=== PATIENT | female | born 1950 | race Caucasian/White ===

== ENCOUNTER 2018-12-27 07:43 | Day surgery (SDC) | payer MEDICARE ==
--- OUTSIDE RECORDS SUMMARY | 2018-12-27 07:49 | XMS REPORT | Clinical Summary ---
:1950 Author Organization [facility] Address [address] [place] [address] Care Team Providers Name Role Phone José De Leon MD Primary Care Provider Allergies Active Allergy Reactions Severity Noted Date Comments Promethazine-Dm Nausea Only 12/31/2017 Medications Medication Sig Dispensed Refills Start Date End Date Status citalopram (CELEXA) 10 Take 10 mg by 0 Active MG tablet mouth daily. cetirizine (ZYRTEC) 10 Take 10 mg by 0 Active MG tablet mouth daily. glucosamine sulfate Take by mouth. 0 Active (GLUCOSAMINE) 500 mg Tab levETIRAcetam (KEPPRA) Take 1 tablet 60 tablet 11 01/01/2018 01/01/2019 Active 500 MG tablet (500 mg total) by mouth 2 (two) times daily. Active Problems Problem Noted Date Syncope, unspecified syncope type 12/31/2017 Encounters Date Type Specialty Care Team Description 12/31/2017 - Emergency Cardiology Terry Spear Syncope, unspecified syncope type (Primary Dx); 01/01/2018 MD Demetrio Hypertension, uncontrolled; Irineo Baker MD Seizure ([facility]) Jo-Ann Pierre MD after 12/26/2017 Family History Medical History Relation Name Comments Cancer Maternal Aunt Cancer Sister Relation Name Status Comments Maternal Aunt Sister Social History Tobacco Use Types Packs/Day Years Used Date Never Smoker Smokeless Tobacco: Never Used Alcohol Use Drinks/Week oz/Week Comments No Sex Assigned at Date Recorded Not on file Job Start Date Occupation Industry Not on file Not on file Not on file Travel History Travel Start Travel End No recent travel history available. Last Filed Vital Signs Vital Sign Reading Time Taken Blood Pressure 134/71 01/01/2018 3:53 PM CDT Pulse 71 01/01/2018 3:53 PM CDT Temperature 36.8 C (98.3 F) 01/01/2018 3:53 PM CDT Respiratory Rate 18 01/01/2018 3:53 PM CDT Oxygen Saturation 98% 01/01/2018 3:53 PM CDT Inhaled Oxygen Concentration - - Weight 75.5 kg (166 lb 8 oz) 01/01/2018 9:05 AM CDT Height 167.6 cm (5' 6") 12/31/2017 10:00 PM CDT Body Mass Index 26.87 01/01/2018 9:05 AM CDT Plan of Treatment Not on file Procedures Procedure Name Priority Date/Time Associated Comments Diagnosis RHYTHM STRIP - SCAN 01/04/2018 1:20 PM CDT EEG AWAKE AND DROWSY Routine 01/01/2018 8:35 Results for this AM CDT procedure are in the results section. PERIPHERAL VASCULAR 01/01/2018 7:20 REPORT - SCAN AM CDT URINALYSIS W/ Routine 01/01/2018 4:15 Results for this MICROSCOPIC AM CDT procedure are in the results section. URINE CULTURE Routine 01/01/2018 4:15 Results for this AM CDT procedure are in the results section. CBC W/PLT COUNT & Routine 01/01/2018 4:12 Results for this AUTO DIFFERENTIAL AM CDT procedure are in the results section. D-DIMER Routine 01/01/2018 4:12 Results for this AM CDT procedure are in the results section. TROPONIN I Routine 01/01/2018 4:12 Results for this AM CDT procedure are in the results section. PROTEIN AP Routine 01/01/2018 4:12 Results for this ELECTROPHORESIS, AM CDT procedure are in SERUM the results section. HEMOGLOBIN A1C AP Routine 01/01/2018 4:12 Results for this AM CDT procedure are in the results section. RPR Routine 01/01/2018 4:12 Results for this AM CDT procedure are in the results section. VITAMIN B12 AND Routine 01/01/2018 4:12 Results for this FOLATE AM CDT procedure are in the results section. TSH/FREE T4 IF Routine 01/01/2018 4:12 Results for this INDICATED AM CDT procedure are in the results section. CBC W/PLT COUNT & Routine 01/01/2018 4:12 Results for this AUTO DIFFERENTIAL AM CDT procedure are in the results section. BASIC METABOLIC PANEL Routine 01/01/2018 4:12 Results for this (7) AM CDT procedure are in the results section. MR BRAIN WITHOUT & STAT 01/01/2018 3:19 Results for this WITH IV CONTRAST AM CDT procedure are in the results section. CAROTID DOPPLER Routine 12/31/2017 8:26 Results for this BILATERAL PM CDT procedure are in the results section. CT BRAIN WITHOUT IV STAT 12/31/2017 3:12 Results for this CONTRAST PM CDT procedure are in the results section. XR CHEST 1 VIEW STAT 12/31/2017 2:39 Results for this PORTABLE/BEDSIDE PM CDT procedure are in the results section. CBC W/PLT COUNT & STAT 12/31/2017 2:18 Results for this AUTO DIFFERENTIAL PM CDT procedure are in the results section. CBC W/PLT COUNT & STAT 12/31/2017 2:18 Results for this AUTO DIFFERENTIAL PM CDT procedure are in the results section. TROPONIN I STAT 12/31/2017 2:18 Results for this PM CDT procedure are in the results section. B-TYPE NATRIURETIC STAT 12/31/2017 2:18 Results for this FACTOR (BNP) PM CDT procedure are in the results section. MAGNESIUM STAT 12/31/2017 2:18 Results for this PM CDT procedure are in the results section. BASIC METABOLIC PANEL STAT 12/31/2017 2:18 Results for this (7) PM CDT procedure are in the results section. after 12/26/2017 Results RHYTHM STRIP - SCAN (01/04/2018 1:20 PM CDT) Narrative Performed At EEG AWAKE AND DROWSY (01/01/2018 8:35 AM CDT) Specimen Narrative Performed At Date(s) of EE01/01/2018 RIS DATE OF REPORT: 01/01/2018 ACC: [id number] EEG Number: [id number] Test Location: Outpatient EEG Lab Start time: 08:13 Stop time: 08:35 ICD-10: R56.9 CPT Code: 66720 HISTORY: 67 y/o woman with hx of depression/anxiety, seizures in childhood who presents with an episode of syncope MEDICATIONS THAT COULD AFFECT EEG: citalopram, ondansetron, tramadol TECHNICAL SUMMARY: This is a digital video-EEG recorded with 32 input channels reviewed with bipolar and referential montages using the modified combinatorial system nomenclature. DESCRIPTION OF RECORD: During the maximally alert state a 9 Hz posterior dominant rhythm was seen that was symmetric, reactive to eye opening and well regulated. More anteriorly, low voltage frontocentral beta predominated. Drowsiness was characterized by alpha attenuation and increased frontocentral theta.Stage 2 sleep was not reached. SIGNIFICANT VIDEO EVENTS: None SIGNIFICANT ELECTROCARDIOGRAM EVENTS: None HV: Hyperventilation was not performed. PHOTIC STIMULATION: Photic stimulation was done from 3-30 Hz; no photic driving was seen; photoparoxysmal responses were absent. IMPRESSION: Normal Awake and Drowsy EEG CLINICAL CORRELATION: An EEG without epileptiform discharges does not exclude the possibility of epilepsy.If the clinical suspicion of epilepsy remains, consider additional EEG recordings. Rola Queen MD Neurophysiology Fellow Norbert Lim MD, MS Clinical Neurophysiology/Epilepsy Attending [facility] Procedure Note Interface, External Ris In - 01/01/2018 11:09 AM CDT Date(s) of EE01/01/2018 DATE OF REPORT: 01/01/2018 ACC: [id number] EEG Number: [id number] Test Location: Outpatient EEG Lab Start time: 08:13 Stop time: 08:35 ICD-10: R56.9 CPT Code: 74438 HISTORY: 67 y/o woman with hx of depression/anxiety, seizures in childhood who presents with an episode of syncope MEDICATIONS THAT COULD AFFECT EEG: citalopram, ondansetron, tramadol TECHNICAL SUMMARY: This is a digital video-EEG recorded with 32 input channels reviewed with bipolar and referential montages using the modified combinatorial system nomenclature. DESCRIPTION OF RECORD: During the maximally alert state a 9 Hz posterior dominant rhythm was seen that was symmetric, reactive to eye opening and well regulated. More anteriorly, low voltage frontocentral beta predominated. Drowsiness was characterized by alpha attenuation and increased frontocentral theta. Stage 2 sleep was not reached. SIGNIFICANT VIDEO EVENTS: None SIGNIFICANT ELECTROCARDIOGRAM EVENTS: None HV: Hyperventilation was not performed. PHOTIC STIMULATION: Photic stimulation was done from 3-30 Hz; no photic driving was seen; photoparoxysmal responses were absent. IMPRESSION: Normal Awake and Drowsy EEG CLINICAL CORRELATION: An EEG without epileptiform discharges does not exclude the possibility of epilepsy. If the clinical suspicion of epilepsy remains, consider additional EEG recordings. Rola Queen MD Neurophysiology Fellow Norbert Lim MD, MS Clinical Neurophysiology/Epilepsy Attending [facility] Performing Organization Address City/[facility]/Zipcode Phone Number GE RIS PERIPHERAL VASCULAR REPORT - SCAN (01/01/2018 7:20 AM CDT) Narrative Performed At Urinalysis w/ Microscopic (01/01/2018 4:15 AM CDT) Color, UA Light Yellow [facility] Clarity, UA Clear [facility] Specific [place], UA 1.007 1.001 - 1.035 [facility] pH, UA 6.5 5.0 - 8.0 [facility] Protein, UA Negative Negative [facility] Glucose, UA Negative Negative [facility] Ketones, UA Negative Negative [facility] Bilirubin, UA Negative Negative [facility] Blood, UA Negative Negative [facility] Nitrite, UA Negative Negative [facility] Leukocytes, UA Small (A) Negative [facility] Urobilinogen, UA 0.2 0.2 - 1.0 mg/dL [facility] RBC, UA 0 /HPF [facility] WBC, UA 5 /HPF [facility] Squam Epithel, UA 2 /HPF [facility] Specimen Source Urine, Voided [facility] Specimen Urine Performing Organization Address City/[facility]/Zipcode Phone Number [facility] [address] [place] [address] CENTER Urine culture (01/01/2018 4:15 AM CDT) Result BETA-HEMOLYTIC STREPTOCOCCUS, [facility] NON-GROUP A, NON-GROUP B (A) [facility] Result 10-19,000 col/mL Enterococcus [facility] species (A) [facility] [place] Specimen Urine Narrative Performed At 50-59,000 col/mL skin mannie [facility] <10,000 col/mL GRAM NEGATIVE NENO Organism Antibiotic Method Susceptibility Enterococcus species Ampicillin <=2: Susceptible Enterococcus species Linezolid 2: Susceptible Enterococcus species Nitrofurantoin <=16: Susceptible Enterococcus species Tetracycline <=1: Susceptible Enterococcus species Vancomycin 1: Susceptible Performing Organization Address [facility] Phone Number [address] [address] [phone] [place] Vitamin B12 and Folate (01/01/2018 4:12 AM CDT) Vitamin B12 310 213 - 816 pg/mL [facility] Folate 11.2 >=7.0 ng/mL [facility] Specimen Blood Performing Organization Address [facility] Phone Number [address] [phone] [place] TSH/Free T4 If Indicated (01/01/2018 4:12 AM CDT) TSH 1.05 0.35 - 4.94 uIU/mL [facility] Specimen Blood Performing Organization Address [facility] Phone Number [address] [address] [phone] [place] CBC with platelet count + automated diff (01/01/2018 4:12 AM CDT)Only the most recent of2 resultswithin the time period is included. WBC 8.7 3.5 - 10.5 K/L [facility] RBC 3.98 3.93 - 5.22 M/L [facility] Hemoglobin 11.7 11.2 - 15.7 GM/DL [facility] Hematocrit 36.3 34.1 - 44.9 % [facility] MCV 91.2 79.4 - 94.8 fL [facility] MCH 29.4 25.6 - 32.2 pg [facility] MCHC 32.2 32.2 - 35.5 GM/DL [facility] RDW 13.5 11.7 - 14.4 % [facility] Platelets 251 150 - 450 K/CU MM [facility] MPV 8.7 (L) 9.4 - 12.3 fL [facility] nRBC 0 0 - 0 /100 WBC [facility] % Neutros 75 % [facility] % Lymphs 14 % [facility] % Monos 8 % [facility] % Eos 2 % [facility] % Baso 1 % [facility] # Neutros 6.57 (H) 1.56 - 6.13 K/L [facility] # Lymphs 1.25 1.18 - 3.74 K/L [facility] # Monos 0.66 (H) 0.24 - 0.36 K/L [facility] # Eos 0.15 0.04 - 0.36 K/L [facility] # Baso 0.06 0.01 - 0.08 K/L [facility] Immature Granulocytes-Relative 1 0 - 1 % [facility] Specimen Blood Performing Organization Address City/State/Zipcode Phone Number [facility] [address] [place] [address] CENTER Troponin I (01/01/2018 4:12 AM CDT)Only the most recent of2 resultswithin the time period is included. Troponin I <0.01 0.00 - 0.03 ng/mL [facility] Specimen Blood Narrative Performed At [facility] Troponin I (TnI) levels must be interpreted in the context of the presenting symptoms and the clinical findings. Elevated TnI levels indicate myocardial damage, but are not specific for ischemic heart disease. Elevated TnI levels are seen in patients with other cardiac conditions (including myocarditis and congestive heart failure), and slight TnI elevations occur in patients with other conditions, including sepsis, renal failure, acidosis, acute neurological disease, and persistent tachyarrhythmia. Performing Organization Address City/[facility] Cent[facility] Phone Number [address] [address] [phone] [place] RPR (01/01/2018 4:12 AM CDT) RPR Nonreactive Nonreactive [facility] Specimen Blood Performing Organization Address [facility] Phone Number [address] [phone] [place] D-dimer (01/01/2018 4:12 AM CDT) D-Dimer, Quant <0.27 <0.50 MG/L FEU [facility] Specimen Blood Narrative Performed At [facility] Intended Use: The D-Dimer Assay can be used to aid in the diagnosis of Deep Vein Thrombosis (DVT) and Pulmonary Embolism Disease (PED). In patients with low pre-test probability, various studies concerning STA Liatest D-dimer test have reported that with a cutoff value of 0.50 MG/L FEU, the Negative Predictive Value (NPV) regarding the exclusion of thrombosis is within 95-100% range. Performing Organization Address [facility] Phone Number [address] [phone] [place] Protein electrophoresis, serum (01/01/2018 4:12 AM CDT) Albumin Fraction 3.1 (L) 3.5 - 5.5 g/dL [facility] Alpha 1 Fraction 0.2 0.2 - 0.4 g/dL [facility] Alpha 2 Fraction 0.7 0.5 - 0.9 g/dL [facility] Beta Fraction 1.0 0.6 - 1.1 g/dL [facility] Gamma Globulin Fraction 0.7 0.7 - 1.7 g/dL [facility] Interpretation All fractions present [facility] in expected [facility] distribution. No monoclonal bands detected. Pathologist: Amber Hawkins MD [facility] (electronic signature) [facility] Protein, Total 5.7 (L) 6.0 - 8.3 gm/dL [facility] Specimen Blood Performing Organization Address City/State/Zipcode Phone Number [facility] [address] [place] [address] CENTER Hemoglobin A1c (01/01/2018 4:12 AM CDT) Hemoglobin A1C 5.7 4.3 - 6.1 % [facility] Specimen Blood Performing Organization Address City/State/Zipcode Phone Number [facility] [address] [place], [place] [phone] Basic metabolic panel (01/01/2018 4:12 AM CDT)Only the most recent of2 resultswithin the time period is included. Sodium 138 136 - 145 meq/L [facility] Potassium 3.8 3.5 - 5.1 meq/L [facility] Chloride 107 98 - 107 meq/L [facility] CO2 23 22 - 29 meq/L [facility] BUN 8 7 - 21 mg/dL [facility] Creatinine 0.74 0.57 - 1.25 mg/dL [facility] Glucose 137 (H) 70 - 105 mg/dL [facility] Calcium 8.5 8.4 - 10.2 mg/dL [facility] EGFR Comment: INSUFFICIENT CLINICAL mL/min/1.73 sq m [facility] DATA TO CALCULATE ESTIMATED [facility] GFR. Specimen Blood Performing Organization Address City/State/Zipcode Phone Number [facility] [address] [place] [address] [phone] CENTER MR brain without & with IV contrast (01/01/2018 3:19 AM CDT) Specimen Narrative Performed At FINAL REPORT elicit MR, BRAIN, WITH \\T\\ WITHOUT CONTRAST INDICATION: Seizures new or progressive TECHNIQUE: Multiplanar, multisequence MR imaging of the brain was obtained before and after uneventful administration of gadolinium contrast. COMPARISON: Correlation to noncontrast brain CT December 31, 2017 FINDINGS: Mild cerebral atrophy is present. There are rare deep white matter microvascular changes. Faint increased T2 signal noted in the mesial temporal lobes, which may be artifactual. No parenchymal hemorrhage is present. There is no infarct, space-occupying lesion or abnormal postcontrast enhancement. No intracranial hemorrhage or extra-axial collection is present. The ventricular system is normal in size and configuration. The cortical sulci are within normal limits. The larger intracranial vascular flow voids are preserved. No abnormality of the skull base or calvarium is present. The visualized paranasal sinuses, mastoid air cells, and orbits are within normal limits. IMPRESSION: Faint signal abnormality mesial temporal lobes bilaterally. Appearance may be artifactual or due to infiltrate. Correlation with EEG recommended. No space-occupying lesion. Gross symmetry of the [place] formations. Signed: JR Perez Robert MD Report Verified Date/Time:01/01/2018 04:12:21 Reading Location: [facility] C013Y CT Body Reading Room Procedure Note Interface, External Ris In - 01/01/2018 4:14 AM CDT FINAL REPORT MR, BRAIN, WITH \\T\\ WITHOUT CONTRAST INDICATION: Seizures new or progressive TECHNIQUE: Multiplanar, multisequence MR imaging of the brain was obtained before and after uneventful administration of gadolinium contrast. COMPARISON: Correlation to noncontrast brain CT December 31, 2017 FINDINGS: Mild cerebral atrophy is present. There are rare deep white matter microvascular changes. Faint increased T2 signal noted in the mesial temporal lobes, which may be artifactual. No parenchymal hemorrhage is present. There is no infarct, space-occupying lesion or abnormal postcontrast enhancement. No intracranial hemorrhage or extra-axial collection is present. The ventricular system is normal in size and configuration. The cortical sulci are within normal limits. The larger intracranial vascular flow voids are preserved. No abnormality of the skull base or calvarium is present. The visualized paranasal sinuses, mastoid air cells, and orbits are within normal limits. IMPRESSION: Faint signal abnormality mesial temporal lobes bilaterally. Appearance may be artifactual or due to infiltrate. Correlation with EEG recommended. No space-occupying lesion. Gross symmetry of the [place] formations. Signed: JR Ana, Ambrose GOMEZ Report Verified Date/Time: 01/01/2018 04:12:21 Reading Location: [facility] C013Y CT Body Reading Room Performing Organization Address City/State/Zipcode Phone Number [employer] Carotid doppler bilateral (12/31/2017 8:26 PM CDT) Ejection Fraction [facility] Specimen Impressions Performed At Right Impression [facility] 1. There is <50% diameter reduction (approximately 12% by 2-D measurement) in the internal carotid artery with a peak velocity of 75/24 cm/sec and heterogeneous plaque. 2. The common and external carotid arteries are within normal limits. 3. The vertebral artery flow is antegrade and normal. Left Impression 1. The internal, common and external carotid arteries are within normal limits. 2. The vertebral artery flow is antegrade and normal. Conclusions Summary Carotid duplex scanning and color flow imaging were performed bilaterally. The arteries were adequately visualized. The right internal carotid artery had <50% hemodynamically insignificant stenosis (approximately 12% by 2-D measurement) with heterogeneous plaque. The left internal carotid artery was normal with no plaque visualized. The vertebral artery flow was antegrade and normal bilaterally. Signature Velocities are measured in cm/s ; Diameters are measured in cm Carotid Right Measurements +---------+----+----+-----+ +--------- + + !Location !PSV !EDV !Angle!%Stenosis 2D !%Stenosis Doppler !Tortuosity ! +---------+----+----+-----+ +--------- + + !Prox CCA !116 !32.2!60 ! !! ! +---------+----+----+-----+ +--------- + + !Dist CCA !77!27.5!60 ! !! ! +---------+----+----+-----+ +--------- + + !Prox ICA !75.6!24!60 !12%!<50% ! ! +---------+----+----+-----+ +--------- + + !Dist ICA !95.6!42.8!60 ! !! ! +---------+----+----+-----+ +--------- + + !Prox ECA !70.9!15.2!60 ! !! ! +---------+----+----+-----+ +--------- + + !Vertebral!37.5!13.5!60 ! !! ! +---------+----+----+-----+ +--------- + + - There is antegrade vertebral flow noted on the right side. - Additional Measurements:ICAPSV/CCAPSV 1.24.ICAEDV/CCAEDV 1.33. Carotid Left Measurements +---------+----+----+-----+ +--------- + + !Location !PSV !EDV !Angle!%Stenosis 2D !%Stenosis Doppler !Tortuosity ! +---------+----+----+-----+ +--------- + + !Prox CCA !134 !34.4!60 ! !! ! +---------+----+----+-----+ +--------- + + !Dist CCA !88.5!25.2!60 ! !! ! +---------+----+----+-----+ +--------- + + !Prox ICA !94.4!33.4!60 ! !Normal! ! +---------+----+----+-----+ +--------- + + !Dist ICA !61.5!26.2!0! !!Mild ! +---------+----+----+-----+ +--------- + + !Prox ECA !69.2!16.4!60 ! !! ! +---------+----+----+-----+ +--------- + + !Vertebral!42.8!14.1!60 ! !! ! +---------+----+----+-----+ +--------- + + - There is antegrade vertebral flow noted on the left side. - Additional Measurements:ICAPSV/CCAPSV 1.07.ICAEDV/CCAEDV 0.97. Narrative Performed At LAB - Carotid Duplex Study [facility] Demographics Patient Name LAYLA MCCOY Date of Study12/31/2017 [id number] Visit Number [id number] Gender Female Accession Number [id number] Date of Birth1950 [facility],Room [id number] PhysicianSOL BarnesInterpreting Shelly Puente RVT Physician, ASHLEY Procedure Type of Study: Cerebral: Carotid, CAROTID DOPPLER, BILATERAL. Indications for Study:Syncope . Patient Status:Routine. Study Location:Portable. Technical Quality:Adequate visualization. Risk Factors History of Disease + -----+ +--------+ !Diagnosis !Date!Comments! + -----+ +--------+ !History/Risk Factors: !12/31/2017!seizures! + -----+ +--------+ Procedure Note Interface, External Ris In - 01/01/2018 6:20 AM CDT [facility] LAB - Carotid Duplex Study Demographics Patient Name LAYLA MCCOY Date of Study 12/31/2017 Age 67 Visit Number [id number] Gender Female Accession Number [id number] Date of 1950 Referring Irineo Baker, Room Number 1442 Physician RES Special Agent [employer] Service Xochitl Barnes Interpreting Shelly Puente [facility] Physician , ASHLEY Procedure Type of Study: Cerebral: Carotid, CAROTID DOPPLER, BILATERAL. Indications for Study:Syncope . Patient Status:Routine. Study Location:Portable. Technical Quality:Adequate visualization. Risk Factors History of Disease + + +--------+ !Diagnosis !Date !Comments! + + +--------+ !History/Risk Factors: !12/31/2017!seizures! + + +--------+ Impressions Right Impression 1. There is <50% diameter reduction (approximately 12% by 2-D measurement) in the internal carotid artery with a peak velocity of 75/24 cm/sec and heterogeneous plaque. 2. The common and external carotid arteries are within normal limits. 3. The vertebral artery flow is antegrade and normal. Left Impression 1. The internal, common and external carotid arteries are within normal limits. 2. The vertebral artery flow is antegrade and normal. Conclusions Summary Carotid duplex scanning and color flow imaging were performed bilaterally. The arteries were adequately visualized. The right internal carotid artery had <50% hemodynamically insignificant stenosis (approximately 12% by 2-D measurement) with heterogeneous plaque. The left internal carotid artery was normal with no plaque visualized. The vertebral artery flow was antegrade and normal bilaterally. Signature Velocities are measured in cm/s ; Diameters are measured in cm Carotid Right Measurements +---------+----+----+-----+ + + + !Location !PSV !EDV !Angle!%Stenosis 2D !%Stenosis Doppler !Tortuosity ! +---------+----+----+-----+ + + + !Prox CCA !116 !32.2!60 ! ! ! ! +---------+----+----+-----+ + + + !Dist CCA !77 !27.5!60 ! ! ! ! +---------+----+----+-----+ + + + !Prox ICA !75.6!24 !60 !12% !<50% ! ! +---------+----+----+-----+ + + + !Dist ICA !95.6!42.8!60 ! ! ! ! +---------+----+----+-----+ + + + !Prox ECA !70.9!15.2!60 ! ! ! ! +---------+----+----+-----+ + + + !Vertebral!37.5!13.5!60 ! ! ! ! +---------+----+----+-----+ + + + - There is antegrade vertebral flow noted on the right side. - Additional Measurements:ICAPSV/CCAPSV 1.24.ICAEDV/CCAEDV 1.33. Carotid Left Measurements +---------+----+----+-----+ + + + !Location !PSV !EDV !Angle!%Stenosis 2D !%Stenosis Doppler !Tortuosity ! +---------+----+----+-----+ + + + !Prox CCA !134 !34.4!60 ! ! ! ! +---------+----+----+-----+ + + + !Dist CCA !88.5!25.2!60 ! ! ! ! +---------+----+----+-----+ + + + !Prox ICA !94.4!33.4!60 ! !Normal ! ! +---------+----+----+-----+ + + + !Dist ICA !61.5!26.2!0 ! ! !Mild ! +---------+----+----+-----+ + + + !Prox ECA !69.2!16.4!60 ! ! ! ! +---------+----+----+-----+ + + + !Vertebral!42.8!14.1!60 ! ! ! ! +---------+----+----+-----+ + + + - There is antegrade vertebral flow noted on the left side. - Additional Measurements:ICAPSV/CCAPSV 1.07.ICAEDV/CCAEDV 0.97. Performing Organization Address City/State/Zipcode Phone Number [facility] without IV contrast (12/31/2017 3:12 PM CDT) Specimen Narrative Performed At FINAL REPORT [employer] CT Head without contrast CLINICAL HISTORY: Syncope/fainting headache TECHNIQUE: Contiguous axial images through the head without contrast. This exam was performed according to the departmental dose optimization program which includes automated exposure control, adjustment of the mA and/or kV according to the patient size, and/or use of an iterative reconstruction technique. COMPARISON: None FINDINGS: There is no CT evidence of acute infarct or intracranial hemorrhage. There is periventricular and subcortical white matter hypodensity which is nonspecific but compatible with chronic microvascular ischemic change. There are atherosclerotic calcifications of the intracranial circulation. There is generalized parenchymal volume loss without hydrocephalus, midline shift, or apparent mass effect. There are no extra-axial fluid collections. The skull is intact. The visualized paranasal sinuses are well-aerated. IMPRESSION: No CT evidence of acute infarct, hemorrhage, or hydrocephalus. Signed: Tyesha Workman MD Report Verified Date/Time:12/31/2017 15:17:03 Reading Location: [address] Consult Reading Room Procedure Note Interface, External Ris In - 12/31/2017 3:19 PM CDT FINAL REPORT CT Head without contrast CLINICAL HISTORY: Syncope/fainting headache TECHNIQUE: Contiguous axial images through the head without contrast. This exam was performed according to the departmental dose optimization program which includes automated exposure control, adjustment of the mA and/or kV according to the patient size, and/or use of an iterative reconstruction technique. COMPARISON: None FINDINGS: There is no CT evidence of acute infarct or intracranial hemorrhage. There is periventricular and subcortical white matter hypodensity which is nonspecific but compatible with chronic microvascular ischemic change. There are atherosclerotic calcifications of the intracranial circulation. There is generalized parenchymal volume loss without hydrocephalus, midline shift, or apparent mass effect. There are no extra-axial fluid collections. The skull is intact. The visualized paranasal sinuses are well-aerated. IMPRESSION: No CT evidence of acute infarct, hemorrhage, or hydrocephalus. Signed: Tyesha Workman MD Report Verified Date/Time: 12/31/2017 15:17:03 Reading Location: [facility] C013 Consult Reading Room Performing Organization Address City/State/Zipcode Phone Number [employer] XR chest 1 view portable/bedside (12/31/2017 2:39 PM CDT) Specimen Narrative Performed At FINAL REPORT [employer] EXAM: Frontal chest radiograph HISTORY PROVIDED: Chest pain COMPARISON: None available IMPRESSION: No focal consolidation, pneumothorax, or significant pleural fluid is identified. The cardiomediastinal silhouette is within normal limits. No acute osseous abnormality. Signed: Shiela Starkey MD Report Verified Date/Time:12/31/2017 15:26:03 Reading Location: [facility] Reading Room Procedure Note Interface, External Ris In - 12/31/2017 3:28 PM CDT FINAL REPORT EXAM: Frontal chest radiograph HISTORY PROVIDED: Chest pain COMPARISON: None available IMPRESSION: No focal consolidation, pneumothorax, or significant pleural fluid is identified. The cardiomediastinal silhouette is within normal limits. No acute osseous abnormality. Signed: Shiela Starkey MD Report Verified Date/Time: 12/31/2017 15:26:03 Reading Location: [facility] Reading Room Performing Organization Address City/[facility] Phone Number RIS B-type Natriuretic Factor (BNP) (12/31/2017 2:18 PM CDT) BNP 17 0 - 100 pg/mL [facility] Specimen Blood Performing Organization Address [facility] Cent[facility] Phone Number [address] [address] [phone] CENTER Magnesium (12/31/2017 2:18 PM CDT) Magnesium 2.2 1.6 - 2.6 mg/dL [facility] Specimen Blood Performing Organization Address [facility] Cent[facility] Phone Number [address] [address] CENTER after 12/26/2017 Insurance Payer Benefit Plan / Group Subscriber ID Type Phone Address [facility] - MEDICARE AARP/MEDICARE COMPLETE xxxxxxxxx MGD CARE EK (Home) [place] [address] Advance Directives For more information, please contact:[address] [phone] Code Status Date Activated Date Inactivated Comments Full Code 12/31/2017 5:46 PM 01/01/2018 6:09 PM This code status was determined by: Patient
--- OUTSIDE RECORDS SUMMARY | 2018-12-27 07:50 | XMS REPORT | Continuity of Care Document ---
:1950 Author Organization Interface Problems Problem Status Onset Classification Date Comments Source Date Reported LEFT FOOT Active 10/31/19 [facility] [place] 17 [place] SURGERY 10/30/16 LEFT ANKLE Active 10/31/19 [facility] [place] Fracture of 10/16/19 Problem 11/01/2016 3fell off ladder Surgical calcaneus<mallory 17 Specialty p>2, 3</sup> [facility] [place] Heel pain 10/16/19 Problem 11/01/2016 Surgical 17 Specialty [facility] [place] Convulsion<s 08/17/18 Problem 11/01/2016 1pt states Surgical up>1</sup> 55 convulsion/seizu Specialty re activity with Hospital of fever. resolved [place] after tonsillectomy in 1954. was on Phenobarbital x 1 year after surgery. No further problems or seizure activity. Medications Medication Details Route Status Patient Ordering Order Source Instructions Provider Date Demerol HCl 12.5 mg=0.25 Inactive [place] 10/30/ Surgical mL, Injection, 2017 Specialty IV Push, Once Hospital PRN for of [place] shivers, first [place] dose 10/30/16 16:09:00 CDT LR 1,000 mL 1,000 mL, IV, Inactive [facility] 10/30/ Surgical 75 mL/hr, start 2017 Specialty date 10/30/16 Hospital 16:09:00 CDT of [place] ondansetron 4 mg=2 mL, Inactive [facility] 10/30/ Surgical Injection, IV 2017 Specialty Push, q15min Hospital PRN for of [place] nausea/vomiting [place] , order duration: 2 doses, first dose 10/30/16 16:09:00 CDT, stop date Limited # of times Saline Lock 10 mL, Soln, IV Inactive [place] 10/30/ Surgical Flush Push, As 2017 Specialty Indicated PRN Hospital for flush, of [place] first dose [place] 10/30/16 16:09:00 CDT Dilaudid 0.5 mg=0.25 mL, Inactive [place] 10/30/ Surgical Injection, IV 2017 Specialty Push, q10min Hospital PRN for pain of [place] severe (7-10), [place] first dose 10/30/16 16:09:00 CDT Bupivacaine 300 mL, Nerve Inactive [place] 10/30/ Surgical 0.25% 300 mL Block, 5 mL/hr, 2017 Specialty pump 300 mL start date Hospital 10/30/16 of [place] 16:09:00 CDT [place] Lactated IV, start date Inactive Tanous 10/30/ Surgical Ringers 10/30/162016 Specialty Injection 16:03:00 CDT, Hospital stop date of [place] 10/30/16 Land 16:03:00 CDT propofol 10 mg=1 mL, Inactive [place] 10/30/ Surgical Emulsion, IV, 2016 Specialty Once, first Hospital dose 10/30/16 of [place] 15:48:00 CDT, [place] stop date 10/30/16 15:48:00 CDT ondansetron 4 mg=2 mL, Inactive [place] 10/30/ Surgical Injection, IV, 2016 Specialty Once, first Hospital dose 10/30/16 of [place] 15:30:00 CDT, [place] stop date 10/30/16 15:30:00 CDT fentaNYL 50 mcg=1 mL, Inactive [place] 10/30/ Surgical Injection, IV, 2016 Specialty Once, first Hospital dose 10/30/16 of [place] 15:29:00 CDT, [place] stop date 10/30/16 15:29:00 CDT Misc Medication 1,000 mL, Inactive [place] 10/30/ Surgical Soln-IV, IV, 2016 Specialty Once, first Hospital dose 10/30/16 of [place] 15:08:00 CDT, [place] stop date 10/30/16 15:08:00 CDT fentaNYL 25 mcg=0.5 mL, Inactive [place] 10/30/ Surgical Injection, IV, 2016 Specialty Once, first Hospital dose 10/30/16 of [place] 15:04:00 CDT, [place] stop date 10/30/16 15:04:00 CDT ketorolac 15 mg=0.5 mL, Inactive [place] 10/30/ Surgical Injection, IV, 2017 Specialty Once, first Hospital dose 10/30/16 of [place] 14:54:00 CDT, [place] stop date 10/30/16 14:54:00 CDT fentaNYL 25 mcg=0.5 mL, Inactive [place] 10/30/ Surgical Injection, IV, 2016 Specialty Once, first Hospital dose 10/30/16 of [place] 14:54:00 CDT, [place] stop date 10/30/16 14:54:00 CDT fentaNYL 25 mcg=0.5 mL, Inactive [place] 10/30/ Surgical Injection, IV, 2017 Specialty Once, first Hospital dose 10/30/16 of [place] 14:21:00 CDT, [place] stop date 10/30/16 14:21:00 CDT ePHEDrine 10 mg=0.2 mL, Inactive [place] 10/30/ Surgical Injection, IV, 2017 Specialty Once, first Hospital dose 10/30/16 of [place] 14:09:00 CDT, [place] stop date 10/30/16 14:09:00 CDT ceFAZolin 2 gm, Soln-IV, Inactive [place] 10/30/ Surgical IV Piggyback, 2017 Specialty Once, first Hospital dose 10/30/16 of [place] 14:00:00 CDT, stop date 10/30/16 14:00:00 CDT dexamethasone 4 mg=1 mL, Inactive [place] 10/30/ Surgical Injection, IV, 2017 Specialty Once, first Hospital dose 10/30/16 of [place] 13:55:00 CDT, stop 10/30/16 13:55:00 CDT fentaNYL 25 mcg=0.5 mL, Inactive [place] 10/30/ Surgical Injection, IV, 2017 Specialty Once, first Hospital dose 10/30/16 of [place] 13:45:00 CDT, stop date 10/30/16 13:45:00 CDT midazolam 1 mg=1 mL, Inactive [place] 10/30/ Surgical Injection, IV, 2017 Specialty Once, first Hospital dose 10/30/16 of [place] 13:45:00 CDT, stop 10/30/16 13:45:00 CDT lidocaine 2 mL, Inactive [place] 10/30/ Surgical Injection, IV, 2017 Specialty Once, first Hospital dose 10/30/16 of [place] 13:45:00 CDT, [place] stop date 10/30/16 13:45:00 CDT propofol 200 mg=20 mL, Inactive [place] 10/30/ Surgical Emulsion, IV, 2017 Specialty Once, first Hospital dose 10/30/16 of [place] 13:45:00 CDT, [place] stop date 10/30/16 13:45:00 CDT fentaNYL 50 mcg=1 mL, Inactive [place] 10/30/ Surgical Injection, IV, 2017 Specialty Once, first Hospital dose 10/30/16 of [place] 13:37:00 CDT, [place] stop date 10/30/16 13:37:00 CDT midazolam 1 mg=1 mL, Inactive [place] 10/30/ Surgical Injection, IV, 2017 Specialty Once, first Hospital dose 10/30/16 of [place] 13:37:00 CDT, [place] stop date 10/30/16 13:37:00 CDT scopolamine 1 patches, Inactive [facility] 10/30/ Surgical Film-ER, IV, 2017 Specialty Once, first Hospital dose 10/30/16 of [place] 13:35:00 CDT, [place] stop date 10/30/16 13:35:00 CDT ceFAZolin 2 gm, Soln-IV, Inactive [place] 10/30/ Surgical IV Piggyback, 2017 Specialty Once, infuse Hospital over 30 of [place] minutes, first [place] dose 10/30/16 13:00:00 CDT, stop date 10/30/16 13:00:00 CDT, patient weight 50-120 kg, Prophylaxis [place] 10 mg-325 1 tabs, Oral, Active [place] 10/30/ Surgical mg oral tablet q4hr, PRN for 2017 Specialty pain, # 60 Hospital tabs, 0 of [place] Refill(s) [place] Zofran 4 mg See Active [place] 10/30/ Surgical oral tablet Instructions, 2017 Specialty 1-2 Tab(s), PO, Hospital Every 6 hours, of [place] as needed for [place] Nausea/Vomiting , # 10 tabs, 0 Refill(s)1-2 Tab(s), PO, Every 6 hours, as needed for Nausea/Vomiting [place] 5 mg-325 1 tabs, Tab, Inactive [facility] 10/30/ Surgical mg oral tablet Oral, q4hr PRN 2017 Specialty for pain Hospital mild-moderate of [place] (1-6), first Land dose 10/30/16 12:32:00 CDTMax 4gm acetaminophen in 24 hours morphine 2 mg=0.2 mL, Inactive [place] 10/30/ Surgical Injection, IV 2017 Specialty Push, Once PRN Hospital for pain severe of [place] (7-10), first [place] dose 10/30/16 12:32:00 CDT Lidocaine 2% 0.2 mL, Inactive [place] 10/30/ Surgical 0.2 mL IV Start Injection, 2017 Specialty [[place]] Subcutaneous, Hospital Once PRN for of [place] other (see [facility] comment), first dose 10/30/16 12:25:00 CDT LR 1,000 mL 1,000 mL, IV, Inactive [place] 10/30/ Surgical 30 mL/hr, start 2017 Specialty date 10/30/16 Hospital 12:25:00 CDT of [place] JUICEPLUS JUICEPLUS, 1 Active 10/29/ Surgical tab PO BID, 0 2017 Specialty Refill(s), Hospital supplement1 tab of [place] PO BID [place] aspirin 325 mg, Oral, Active 10/29/ Surgical Every other 2017 Specialty day, 0 Hospital Refill(s) of [place] ibuprofen 800 800 mg=1 tabs, Active 10/29/ Surgical mg oral tablet Oral, BID, last 2017 Specialty dose AM of Hospital 10-29-16, 0 of [place] Refill(s)last [place] dose AM of 10-29-16 glucosamine Oral, qHS, Active 10/29/ Surgical unknown dose, 0 2016 Specialty Refill(s)unknow Hospital n dose of [place] Caltrate 600 + See Active 10/29/ Surgical D Instructions, 2 2017 Specialty tabs Oral BID, Hospital 0 Refill(s), of [place] supplement2 [place] tabs Oral BID Lovenox 40 40 mg=0.4 mL, Active 10/15/ Surgical mg/0.4 mL Subcutaneous, 2017 Specialty injectable Daily, prx by Hospital solution ER dr after of [place] injury, per pt [facility] Dr troy aware of last dose AM of 10-28-16, # 5.6 mL, 0 Refill(s), blood thinnerprx by ER dr after injury, per pt Dr troy aware of last dose AM of 10-28-16 Allergies, Adverse Reactions, Alerts Substance Category Reaction Severity Reaction Status Date Comments Source type Reported Phenergan propensity increased Adverse Surgical to adverse nausea Reaction Specialty reactions Hospital to of [place] substance [place] Immunizations Immunization Date Given Site Status Last Updated Comments Source Results Order Name Results Value Reference Date Interpretation Comments Source Range LABORATORY Potassium 4.2 mmol/L 3.5 - 4.9 10/30/ Surgical Level 2017 [facility] LABORATORY Sodium Level 141.0 138.0 - 10/30/ Surgical mmol/L 146.0 2017 [facility] LABORATORY AGAP 19 meq/L 8 - 16 10/30/ [place] Surgical 2017 [facility] [place] LABORATORY Results Reported Surgical 2017 Specialty (10/30/2016 12:50:00) [facility] [place] LABORATORY BUN 11 mg/dL 8 - 26 Surgical 2017 [facility] LABORATORY Carbon 25 mmol/L 24 - 29 10/30/ Surgical Dioxide 2017 [facility] [place] LABORATORY Chloride 102 mmol/L 98 - 109 10/30/ Surgical Level 2017 [facility] LABORATORY Calcium 1.21 1.12 - 1.32 10/30/ Surgical Level mmol/L [address] [facility] Ionized [facility] [place] LABORATORY Creatinine 0.8 mg/dL 0.6 - 1.3 Surgical 2017 [facility] [place] LABORATORY Hematocrit 35 % 38 - 51 10/30/ [facility] Surgical 2017 [facility] LABORATORY Hemoglobin 11.9 g/dL 12.0 - 17.0 10/30/ [facility] Surgical 2017 [facility] LABORATORY Glucose Lvl 107 mg/dL 70 - 105 [place] Surgical 2017 [facility] Vital Signs Vital Sign Value Date Comments Source Peripheral Pulse Rate 105 10/30/2016 Surgical Specialty [facility] [place] Respitory Rate 12 10/30/2016 Surgical Specialty [facility] [place] Heart Rate 75 10/30/2016 Surgical Specialty [facility] [place] Systolic (mm Hg) <content 10/30/2016 Surgical Specialty ID='[id number] [facility] [place] 0836'>122</cont [place] ent>/<content ID='[id number] 0838'>78</roberta nt> Respitory Rate 14 10/30/2016 Surgical Specialty [facility] [place] Heart Rate 76 10/30/2016 Surgical [facility]ty [facility] [place] Respitory Rate 12 10/30/2016 Surgical [facility]ty [facility] [place] Systolic (mm Hg) <content 10/30/2016 Surgical Specialty ID='[id number] [facility] [place] 9558'>120</cont [place] ent>/<content ID='[id number] 9560'>75</roberat nt> Systolic (mm Hg) <content 10/30/2016 Surgical Specialty ID='[id number] [facility] [place] 5422'>132</cont [place] ent>/<content ID='[id number] 5424'>80</roberta nt> Heart Rate 77 10/30/2016 Surgical Specialty [facility] [place] Temperature Oral (F) 36.7 Lalitha 10/30/2016 Surgical Specialty [facility] BMI Calculated 29.16 10/30/2016 Surgical Specialty [facility] Weight 79.4 10/30/2016 Surgical Specialty [facility] Peripheral Pulse Rate 77 10/30/2016 Surgical Specialty [facility] Height 165 cm 10/30/2016 Surgical Specialty [facility] Temperature Oral (F) 36.7 Lalitha 10/30/2016 Surgical Specialty [facility] Height 165.10 cm 10/29/2016 Surgical Specialty [facility] [place] Weight 79.37 10/29/2016 Surgical Specialty [facility] BMI Calculated 29.12 10/29/2016 Surgical Specialty [facility] Encounters Location Location Encounter Encounter Reason Attending ADM DC Status Source Details Type Number For Provider Date Date Visit [facility] Outpatient [id number] Sam 10/30 10/30 Active [facility] [place] [facility] [id number] Sam 12/10 01/09 [facility] [place] [facility] Therapy [id number] Sam 01/14 02/13 [facility] [place] [facility] Therapy [id number] Sam 02/20 03/22 [facility] [place] [facility] OP Therapy [id number] Sam 04/01 05/01 [facility] Patients [facility] [place] Procedures Procedure Code Date Perfomer Comments Source OPEN REDUCTION [facility] 1auto-populated Surgical INTERNAL FIXATION 7 from documented Specialty CALCANEAL [place] [address] [place] (Left)<sup>1</sup> facilal plastic Surgical surgery [facility] LASIK bilateral Surgical [facility] Total hysterectomy [id number] Surgical 6 [facility] [place] bunionectomy Surgical 5 [facility] [place] Tonsillectomy [id number] Surgical 5 Specialty [facility]
--- OUTSIDE RECORDS SUMMARY | 2018-12-27 07:50 | XMS REPORT | CCD ---
:1950 Author Organization [facility] Care Team Providers Name Role Phone Sam Ramesh Consulting Provider Unavailable Allergies, Adverse Reactions, Alerts Substance Reaction Status Phenergan increased nausea Active Problem List Condition Effective Dates Status Convulsion1 1954 Resolved Fracture of calcaneus2, 3 10/15/2016 Active Heel pain 10/15/2016 Active 1pt states convulsion/seizure activity with fever. resolved after tonsillectomy in 1954. was on Phenobarbital x 1 year after surgery. No further problems or seizure activity.[id number] off ladder Medications Medication Instructions Start Date End Date Status Demerol HCl 12.5 mg=0.25 mL, 10/30/2016 10/30/2016 Discontinued Injection, IV Push, Once PRN for shivers, first dose 10/30/16 16:09:00 CDT LR 1,000 mL 1,000 mL, IV, 75 mL/hr, 10/30/2016 10/30/2016 Discontinued start date 10/30/16 16:09:00 CDT fentaNYL 25 mcg=0.5 mL, Injection, 10/30/2016 10/30/2016 Completed IV, Once, first dose 10/30/16 13:45:00 CDT, stop date 10/30/16 13:45:00 CDT fentaNYL 25 mcg=0.5 mL, Injection, 10/30/2016 10/30/2016 Completed IV, Once, first dose 10/30/16 14:21:00 CDT, stop date 10/30/16 14:21:00 CDT fentaNYL 50 mcg=1 mL, Injection, 10/30/2016 10/30/2016 Completed IV, Once, first dose 10/30/16 13:37:00 CDT, stop date 10/30/16 13:37:00 CDT midazolam 1 mg=1 mL, Injection, IV, 10/30/2016 10/30/2016 Completed Once, first dose 10/30/16 13:37:00 CDT, stop date 10/30/16 13:37:00 CDT midazolam 1 mg=1 mL, Injection, IV, 10/30/2016 10/30/2016 Completed Once, first dose 10/30/16 13:45:00 CDT, stop date 10/30/16 13:45:00 CDT ketorolac 15 mg=0.5 mL, Injection, 10/30/2016 10/30/2016 Completed IV, Once, first dose 10/30/16 14:54:00 CDT, stop date 10/30/16 14:54:00 CDT lidocaine 2 mL, Injection, IV, 10/30/2016 10/30/2016 Completed Once, first dose 10/30/16 13:45:00 CDT, stop date 10/30/16 13:45:00 CDT scopolamine 1 patches, Film-ER, IV, 10/30/2016 10/30/2016 Completed Once, first dose 10/30/16 13:35:00 CDT, stop date 10/30/16 13:35:00 CDT fentaNYL 25 mcg=0.5 mL, Injection, 10/30/2016 10/30/2016 Completed IV, Once, first dose 10/30/16 14:54:00 CDT, stop date 10/30/16 14:54:00 CDT propofol 200 mg=20 mL, Emulsion, 10/30/2016 10/30/2016 Completed IV, Once, first dose 10/30/16 13:45:00 CDT, stop date 10/30/16 13:45:00 CDT [place] 10 mg-325 mg oral 1 tabs, Oral, q4hr, PRN 10/30/2016 11/13/2016 Ordered tablet for pain, # 60 tabs, 0 Refill(s) Zofran 4 mg oral tablet See Instructions, 1-2 Tab(s), PO, Every 6 hours, as needed for Nausea/Vomiting, # 10 tabs, 0 Refill(s) 10/30/2016 11/13/2016 Ordered 1-2 Tab(s), PO, Every 6 hours, as needed for Nausea/Vomiting Win[place] 5 mg-325 mg oral 1 tabs, Tab, Oral, q4hr 10/30/2016 10/30/2016 Discontinued tablet PRN for pain mild-moderate (1-6), first dose 10/30/16 12:32:00 CDTMax 4gm acetaminophen in 24 hours morphine 2 mg=0.2 mL, Injection, 10/30/2016 10/30/2016 Discontinued IV Push, Once PRN for pain severe (7-10), first dose 10/30/16 12:32:00 CDT aspirin 325 mg, Oral, Every other 10/29/2016 11/12/2016 Ordered day, 0 Refill(s) Lovenox 40 mg/0.4 mL 40 mg=0.4 mL, Subcutaneous, Daily, prx by ER dr after injury, per pt Dr ramesh aware of last dose AM of 10-28-16, # 5.6 mL, 0 Refill(s ), blood thinner 10/15/2016 10/28/2016 Ordered injectable solution prx by ER dr after injury, per pt Dr ramesh aware of last dose AM of 10-28-16 Caltrate 600 + D See Instructions, 2 tabs Oral BID, 0 Refill(s), supplement 10/29/2016 Ordered 2 tabs Oral BID ibuprofen 800 mg oral 800 mg=1 tabs, Oral, BID, last dose AM of 10-29-16, 0 Refill(s) 10/29/2016 11/12/2016 Ordered tablet last dose AM of 10-29-16 glucosamine Oral, qHS, unknown dose, 0 Refill(s) 10/29/2016 11/12/2016 Ordered unknown dose ePHEDrine 10 mg=0.2 mL, Injection, 10/30/2016 10/30/2016 Completed IV, Once, first dose 10/30/16 14:09:00 CDT, stop date 10/30/16 14:09:00 CDT ceFAZolin 2 gm, Soln-IV, IV 10/30/2016 10/30/2016 Completed Piggyback, Once, first dose 10/30/16 14:00:00 CDT, stop date 10/30/16 14:00:00 CDT dexamethasone 4 mg=1 mL, Injection, IV, 10/30/2016 10/30/2016 Completed Once, first dose 10/30/16 13:55:00 CDT, stop date 10/30/16 13:55:00 CDT JUICEPLUS JUICEPLUS, 1 tab PO BID, 0 Refill(s), supplement 10/29/2016 Ordered 1 tab PO BID Lactated Ringers IV, start date 10/30/16 10/30/2016 10/30/2016 Completed Injection 16:03:00 CDT, stop date 10/30/16 16:03:00 CDT Misc Medication 1,000 mL, Soln-IV, IV, 10/30/2016 10/30/2016 Completed Once, first dose 10/30/16 15:08:00 CDT, stop date 10/30/16 15:08:00 CDT ondansetron 4 mg=2 mL, Injection, IV, 10/30/2016 10/30/2016 Completed Once, first dose 10/30/16 15:30:00 CDT, stop date 10/30/16 15:30:00 CDT propofol 10 mg=1 mL, Emulsion, IV, 10/30/2016 10/30/2016 Completed Once, first dose 10/30/16 15:48:00 CDT, stop date 10/30/16 15:48:00 CDT fentaNYL 50 mcg=1 mL, Injection, 10/30/2016 10/30/2016 Completed IV, Once, first dose 10/30/16 15:29:00 CDT, stop date 10/30/16 15:29:00 CDT fentaNYL 25 mcg=0.5 mL, Injection, 10/30/2016 10/30/2016 Completed IV, Once, first dose 10/30/16 15:04:00 CDT, stop date 10/30/16 15:04:00 CDT ceFAZolin 2 gm, Soln-IV, IV 10/30/2016 10/30/2016 Completed Piggyback, Once, infuse over 30 minutes, first dose 10/30/16 13:00:00 CDT, stop date 10/30/16 13:00:00 CDT, patient weight 50-120 kg, Prophylaxis Lidocaine 2% 0.2 mL IV 0.2 mL, Injection, 10/30/2016 10/30/2016 Completed Start [[facility]] Subcutaneous, Once PRN for other (see comment), first dose 10/30/16 12:25:00 CDT LR 1,000 mL 1,000 mL, IV, 30 mL/hr, 10/30/2016 10/30/2016 Discontinued start date 03/16/17 12:25:00 CDT ondansetron 4 mg=2 mL, Injection, IV 10/30/2016 10/30/2016 Discontinued Push, q15min PRN for nausea/vomiting, order duration: 2 doses, first dose 10/30/16 16:09:00 CDT, stop date Limited # of times Saline Lock Flush 10 mL, Soln, IV Push, As 10/30/2016 10/30/2016 Discontinued Indicated PRN for flush, first dose 10/30/16 16:09:00 CDT Dilaudid 0.5 mg=0.25 mL, 10/30/2016 10/30/2016 Discontinued Injection, IV Push, q10min PRN for pain severe (7-10), first dose 10/30/16 16:09:00 CDT Bupivacaine 0.25% 300 mL 300 mL, Nerve Block, 5 10/30/2016 10/30/2016 Discontinued pump 300 mL mL/hr, start date 10/30/16 16:09:00 CDT Vital Signs Most recent to oldest 1 2 3 [Reference Range]: Temperature Oral [35.8-37.3 36.7 DegC DegC] (10/30/2016 12:20:00) Temperature Temporal Artery 36.7 DegC [36.3-37.8 DegC] (10/30/2016 15:50:00) Temperature Temporal 98.06 Fahrenheit (10/30/2016 15:50:00) Peripheral Pulse Rate 105 bpm 77 bpm [55-105 bpm] (10/30/2016 17:40:00) (10/30/2016 12:20:00) Heart Rate Monitored 75 bpm 76 bpm 77 bpm [60-100 bpm] (10/30/2016 16:50:00) (10/30/2016 16:40:00) (10/30/2016 16:30: 00) Respiratory Rate [12-20] 12 14 12 (10/30/2016 17:40:00) (10/30/2016 16:50:00) (10/30/2016 16:40:00) SpO2 [90-100 %] 98 % 98 % 97 % (10/30/2016 17:40:00) (10/30/2016 16:50:00) (10/30/2016 16:40:00) Blood Pressure <content ID='[id number]'>122</content>/<content ID=' [id number]'>78</content> mmHg <content ID='[id number]'>120</content>/ <content ID='[id number]'>75</content> mmHg <content ID='[id number]'> 132</content>/<content ID='[id number]'>80</content> mmHg [110-120/65-85 mmHg] *HI* (10/30/2016 16:40:00) *HI* (10/30/2016 16:50:00) (10/30/2016 16:30:00) Mean Arterial Pressure, 92.7 mmHg 90 mmHg 97.3 mmHg Cuff (10/30/2016 16:50:00) (10/30/2016 16:40:00) (10/30/2016 16:30:00) Most recent to oldest [Reference 1 2 3 Range]: Height 165 cm 165.10 cm (10/30/2016 12:20:00) (10/29/2016 16:57:00) Height/Length Dosing 165 cm 165.1 cm (10/30/2016 12:20:00) (10/29/2016 16:57:00) Height Inches 65 in 65 in (10/30/2016 12:20:00) (10/29/2016 16:57:00) Weight 79.4 kg 79.37 kg (10/30/2016 12:20:00) (10/29/2016 16:57:00) Weight Dosing 79.4 kg 79.37 kg (10/30/2016 12:20:00) (10/29/2016 16:57:00) Weight Pounds 175 lb 175 lb (10/30/2016 12:20:00) (10/29/2016 16:57:00) Body Mass Index 29.16 kg/m2 29.12 kg/m2 (10/30/2016 12:20:00) (10/29/2016 16:57:00) Results LABORATORY Most recent to oldest [Reference Range]: 1 Results Reported (10/30/2016 12:50:00) Hemoglobin [12.0-17.0 gm/dL] 11.9 gm/dL *LOW* (10/30/2016 12:50:00) Hematocrit [38-51 %] 35 % *LOW* (10/30/2016 12:50:00) Sodium Level [138.0-146.0 mmol/L] 141.0 mmol/L (10/30/2016 12:50:00) Potassium Level [3.5-4.9 mmol/L] 4.2 mmol/L (10/30/2016 12:50:00) Chloride Level [98-109 mmol/L] 102 mmol/L (10/30/2016 12:50:00) Total Carbon Dioxide Level [24-29 mmol/L] 25 mmol/L (10/30/2016 12:50:00) AGAP [8-16 mEq/L] 19 mEq/L *HI* (10/30/2016 12:50:00) BUN [8-26 mg/dL] 11 mg/dL (10/30/2016 12:50:00) Creatinine [0.6-1.3 mg/dL] 0.8 mg/dL (10/30/2016 12:50:00) Glucose Lvl [70-105 mg/dL] 107 mg/dL *HI* (10/30/2016 12:50:00) Calcium Level Ionized [1.12-1.32 mmol/L] 1.21 mmol/L (10/30/2016 12:50:00) Procedures Procedures Date Related Diagnosis bunionectomy 1995 [facility] plastic surgery 04/17/2016 00:00:00 LASIK bilateral 1999 OPEN REDUCTION INTERNAL FIXATION CALCANEAL 10/30/2016 14:02:00 FRACTURE 04199 (Left)1 Tonsillectomy 1954 Total hysterectomy 1995 1auto-populated from documented surgical case
--- OUTSIDE RECORDS SUMMARY | 2018-12-27 07:51 | XMS REPORT ---
:1950 Author Organization [employer] Care Team Providers Name Role Phone José De Leon Provider Role Unavailable Allergies No Known Allergies Problems Problem Type Condition Code Onset Dates Condition Status Problem Depression F32.9 Active Problem Osteopenia M85.80 Active Problem Hyperglycemia R73.9 Active Problem Seizures R56.9 Active Assessment Seizures R56.9 Active Medications No Known Medications Results No Known Results Summary Purpose eClinicalWorks Submission
--- OUTSIDE RECORDS SUMMARY | 2018-12-27 07:51 | XMS REPORT ---
:1950 Author Organization [employer] Care Team Providers Name Role Phone José De Leon Provider Role Unavailable Allergies, Adverse Reactions, Alerts Substance Reaction Event Type Phenergan Info Not Available Drug Allergy [place] Info Not Available Drug Allergy Problems Problem Type Condition Code Onset Dates Condition Status Assessment Pain in right ankle and joints of M25.571 Active right foot Assessment Acute cystitis without hematuria N30.00 Active Assessment Other chronic pain G89.29 Active Problem Hyperglycemia R73.9 Active Problem Depression F32.9 Active Problem Other chronic pain G89.29 Active Assessment Encounter for general adult medical Z00.00 Active examination without abnormal findings Problem Osteopenia M85.80 Active Problem Seizures R56.9 Active Medications Medication Code Code Instructions Start End Status Dosage System Date Date Alendronate [facility] 87891388904 70 MG Oral Active not Sodium defined Alendronate [facility] 47649664386 70 Active TAKE 1 Sodium TABLET BY MOUTH ONCE A WEEK, DIRECTED Ibuprofen ND 86573581600 200 MG Orally Active 1 tablet every 6-8 hrs with food or milk as needed Calcium + D3 [facility] 39212-[address]60 Active not defined Keppra [facility] 06418037025 500 MG Orally Active 1 tablet Twice a day Fosamax [facility] 10750833092 70 Active 1 TABLET ORALLY ONCE WEEKLY Citalopram [facility] 94595609645 20 Active TAKE 1 Hydrobromide TABLET BY MOUTH EVERY DAY Fosamax [facility] 05611527392 70 MG Active 1 TABLET ORALLY ONCE WEEKLY Zyrtec Allergy [facility] 69082604354 10 MG Orally Active 1 tablet Once a day Glucosamine [facility] 39997442977 - Orally Active not Chondroitin Adv defined Nitrofurantoin ND 46625014398 100 MG Orally Sep 20, Sep Active 1 capsule Monohyd Macro every 12 hrs 2018 09, with food 2018 Citalopram [facility] 44369659381 20 MG Active 1 TABLET Hydrobromide ORALLY ONCE DAILY Lamictal ND 28712959511 100 MG Orally Active 2 tablets Twice a day Fluzone High-Dose [facility] 57744206019 0.5 ML Active not Intramuscular defined Results No Known Results Summary Purpose [employer]ClinicalWorks Submission
--- OUTSIDE RECORDS SUMMARY | 2018-12-27 07:51 | XMS REPORT ---
:1950 Author Organization [employer] Care Team Providers Name Role Phone José De Leon Provider Role Unavailable Allergies No Known Allergies Problems Problem Type Condition Code Onset Dates Condition Status Problem Chronic kidney disease, stage 2 N18.2 Active (mild) Problem Hyperglycemia R73.9 Active Problem Other chronic pain G89.29 Active Problem Seizures R56.9 Active Problem Depression F32.9 Active Problem Osteopenia M85.80 Active Medications No Known Medications Results No Known Results Summary Purpose [employer]Works Submission
--- OUTSIDE RECORDS SUMMARY | 2018-12-27 07:51 | XMS REPORT ---
:1950 Author Organization [employer] Care Team Providers Name Role Phone José De Leon Provider Role Unavailable Allergies, Adverse Reactions, Alerts Substance Reaction Event Type Phenergan Info Not Available Drug Allergy [place] Info Not Available Drug Allergy Problems Problem Type Condition Code Onset Dates Condition Status Assessment Osteopenia M85.80 Active Assessment Seizures R56.9 Active Problem Depression F32.9 Active Problem Osteopenia M85.80 Active Problem Hyperglycemia R73.9 Active Assessment Encounter for screening mammogram Z12.31 Active for malignant neoplasm of breast Assessment Depression F32.9 Active Problem Seizures R56.9 Active Medications Medication Code Code Instructions Start End Status Dosage System Date Date Lovenox [facility] [address]-48 Apr 14, Active not 2018 defined Glucosamine [facility] 28491662148 - Orally Active not Chondroitin Adv defined Citalopram [facility] 16601179791 20 MG Active 1 TABLET Hydrobromide ORALLY ONCE DAILY Keppra [facility] 92884264259 500 MG Orally Active 1 tablet Twice a day Fosamax [facility] 03371025119 70 Active 1 TABLET ORALLY ONCE WEEKLY Fluzone [facility] 13526244198 0.5 ML Active not High-Dose Intramuscular defined Alendronate [facility] 14455736405 70 MG Oral Active not Sodium defined Zyrtec Allergy [facility] 97887940603 10 MG Orally Active 1 tablet Once a day Fosamax [facility] 03358781436 70 MG Active 1 TABLET ORALLY ONCE WEEKLY Calcium + D3 [facility] 98381-62741 Active not defined Lamictal [facility] 63317580640 100 MG Orally Active 2 tablets Twice a day Ibuprofen [facility] 54330438073 200 MG Orally Active 1 tablet every 6-8 hrs with food or milk as needed Results No Known Results Summary Purpose [employer]ClinicalWorks Submission
--- OUTSIDE RECORDS SUMMARY | 2018-12-27 07:51 | XMS REPORT ---
:1950 Author Organization [employer] Care Team Providers Name Role Phone José De Leon Provider Role Unavailable Allergies No Known Allergies Problems Problem Type Condition Code Onset Dates Condition Status Problem Depression F32.9 Active Problem Osteopenia M85.80 Active Problem Hyperglycemia R73.9 Active Assessment Osteopenia M85.80 Active Assessment Hyperglycemia R73.9 Active Assessment Seizures R56.9 Active Assessment Depression F32.9 Active Medications Medication Code Code Instructions Start End Status Dosage System Date Date Alendronate [facility] 49731980772 70 MG Oral Active not Sodium defined Fluzone [facility] 03761454004 0.5 ML Active not High-Dose Intramuscular defined Fosamax [facility] 25201657149 70 MG Active 1 TABLET ORALLY ONCE WEEKLY Citalopram [facility] 18605465545 20 MG Active 1 TABLET Hydrobromide ORALLY ONCE DAILY Glucosamine [facility] 37838365095 - Orally Active not Chondroitin Adv defined Lovenox [facility] [address]-97 Active not defined Zyrtec Allergy [facility] 46532945077 10 MG Orally Active 1 tablet Once a day Calcium + D3 [facility] [address]42-[address]365 Active not defined Keppra [facility] 33278523610 500 MG Orally Active 1 tablet Twice a day Ibuprofen ND 44878142993 200 MG Orally Active 1 tablet every 6-8 hrs with food or milk as needed Results No Known Results Summary Purpose [employer]ClinicalWorks Submission
--- OUTSIDE RECORDS SUMMARY | 2018-12-27 07:51 | XMS REPORT ---
:1950 Author Organization [employer] Care Team Providers Name Role Phone José De Leon Provider Role Unavailable Allergies No Known Allergies Problems Problem Type Condition Code Onset Dates Condition Status Problem Depression F32.9 Active Problem Osteopenia M85.80 Active Problem Hyperglycemia R73.9 Active Problem Seizures R56.9 Active Medications No Known Medications Results No Known Results Summary Purpose [employer]ClinicalWorks Submission
--- OUTSIDE RECORDS SUMMARY | 2018-12-27 07:51 | XMS REPORT ---
:1950 Author Organization [employer] Care Team Providers Name Role Phone José De Leon Provider Role Unavailable Allergies No Known Allergies Problems Problem Type Condition Code Onset Dates Condition Status Assessment Chronic kidney disease, stage 2 N18.2 Active (mild) Assessment Other chronic pain G89.29 Active Assessment Pain in left foot M79.672 Active Assessment Depression F32.9 Active Assessment Osteopenia M85.80 Active Problem Chronic kidney disease, stage 2 N18.2 Active (mild) Problem Hyperglycemia R73.9 Active Problem Other chronic pain G89.29 Active Problem Seizures R56.9 Active Problem Depression F32.9 Active Problem Osteopenia M85.80 Active Medications Medication Code Code Instructions Start End Status Dosage System Date Date Keppra [facility] 10503498121 500 MG Orally Active 1 tablet Twice a day Lamictal [facility] 49697054824 100 MG Orally Active 2 tablets Twice a day Ibuprofen [facility] 88430522226 200 MG Orally Active 1 tablet every 6-8 hrs with food or milk as needed Glucosamine [facility] 46353747459 - Orally Active not defined Chondroitin Adv Zyrtec Allergy [facility] 60975443473 10 MG Orally Active 1 tablet Once a day Fosamax [facility] 58153414675 70 Active 1 TABLET ORALLY ONCE WEEKLY Alendronate [facility] 05290281839 70 Active TAKE 1 Sodium TABLET BY MOUTH ONCE A WEEK, DIRECTED Fluzone [facility] 93537116755 0.5 ML Active not defined High-Dose Intramuscular Alendronate [facility] 26170176443 70 MG Oral Active not defined Sodium Lamotrigine [facility] 26426132872 150 MG Orally Active 1 tablet Twice a day Fosamax [facility] 47733266300 70 MG Active 1 TABLET ORALLY ONCE WEEKLY Citalopram [facility] 51279275713 20 MG Active 1 TABLET Hydrobromide ORALLY ONCE DAILY Calcium + D3 [facility] 21927-[address]95 Active not defined Citalopram [facility] 22808005811 20 Active TAKE 1 Hydrobromide TABLET BY MOUTH EVERY DAY Results No Known Results Summary Purpose [employer]ClinicalWorks Submission
--- OUTSIDE RECORDS SUMMARY | 2018-12-27 07:51 | XMS REPORT ---
:1950 [facility] [address] [place] [address] Dr. Castellano [address] [place] [id number] Care Team Providers Name Role Phone NICK RANGEL Unavailable Unavailable Problems This patient has no known problems. Allergies, Adverse Reactions, Alerts This patient has no known allergies or adverse reactions. Medications This patient has no known medications. Results Test Description Test Time Test Comments Text Results Atomic Results Result Comments URINE CULTURE 2018-01-04 10:30:00 Test Item Value Reference Range Comments CULTURE (BEAKER) (test >100,000 col/mL Beta-hemolytic dyjq=1852) streptococcus not group A or B, by serological grouping CULTURE (BEAKER) (test ENTEROCOCCUS SPECIES 10-19,000 col/mL Enterococcus injn=1365) species Ampicillin (test code=26) Linezolid (test code=40) Nitrofurantoin (test code=23) Tetracycline (test code=2) Vancomycin (test code=13) 50-59,000 col/mL skin mannie<10,000 col/mL GRAM NEGATIVE [id number] 02: 54:00 Test Item Value Reference Range Comments RPR SCREEN (BEAKER) (test yjlc=380) Nonreactive Nonreactive HEMOGLOBIN [id number] 01:26:00 Test Item Value Reference Range Comments HEMOGLOBIN A1C (BEAKER) (test zryj=048) 5.7 % 4.3-6.1 PROTEIN ELECTROPHORESIS, [id number] 17:39:00 Test Item Value Reference Range Comments ALBUMIN FRACTION (BEAKER) 3.1 g/dL 3.5-5.5 (test afzq=238) ALPHA 1 FRACTION (BEAKER) 0.2 g/dL 0.2-0.4 (test qgcg=755) ALPHA 2 FRACTION (BEAKER) 0.7 g/dL 0.5-0.9 (test ywqf=823) BETA FRACTION (BEAKER) (test 1.0 g/dL 0.6-1.1 kjkn=724) GAMMA GLOBULIN FRACTION 0.7 g/dL 0.7-1.7 (BEAKER) (test zupl=136) INTERPRETATION-119 (BEAKER) All fractions present in (test tqxc=0016) expected distribution. No monoclonal bands detected. [id number] (BEAKER) Amber Hawkins MD (test eqqk=3664) (electronic signature) PROTEIN TOTAL SERUM, SPEP 5.7 gm/dL 6.0-8.3 (BEAKER) (test xugh=7806) EEG AWAKE AND [id number] 11:08:00Reason for exam:->SEIZURESDate(s) of EE01/01/2018 DATE OF REPORT: 01/01/2018 ACC: [id number] EEG Number: [id number] Test Location: Outpatient EEG Lab Start time: 08:13 Stop time: 08:35 ICD-10: R56.9 CPT Code: 42136 HISTORY: 67 y/o woman with hx of depression/anxiety, seizures in childhood who presents with an episode of syncope MEDICATIONS THAT COULD AFFECT EEG: citalopram, ondansetron, tramadol TECHNICAL SUMMARY: This codie digital video-EEG recorded with 32 input channels reviewed with bipolar and referential montages using the modified combinatorial system nomenclature. DESCRIPTION OF RECORD: During the maximally alert state a 9 Hz posterior dominant rhythm was seen that was symmetric, reactive to eye opening andwell regulated. More anteriorly, low voltage frontocentral beta predominated. Drowsiness was characterized by alpha attenuation and increased frontocentral theta. Stage 2 sleep was not reached. SIGNIFICANT VIDEO EVENTS: None SIGNIFICANT ELECTROCARDIOGRAM EVENTS: None HV: Hyperventilation was not performed. PHOTIC STIMULATION: Photic stimulation was done from 3-30 Hz; no photic driving was seen; photoparoxysmal responses were absent. IMPRESSION: Normal Awake and Drowsy EEG CLINICALCORRELATION: An EEG without epileptiform discharges does not exclude the possibility of epilepsy. If the clinical suspicion of epilepsy remains, consider additional EEG recordings. Rola Queen MD Neurophysiology Fellow Bety Lim MD, MS Clinical Neurophysiology/Epilepsy Attending [facility] TSH/FREE T4 IF [id number] 05:20:00 Test Item Value Reference Range Comments THYROID STIMULATING HORMONE (BEAKER) (test 1.05 uIU/mL 0.35-4.94 wshx=607) VITAMIN B12 AND [id number] 05:20:00 Test Item Value Reference Range Comments VITAMIN B12 (BEAKER) (test rbas=428) 310 pg/mL 213-816 FOLATE (BEAKER) (test nurn=952) 11.2 ng/mL >=7.0 URINALYSIS W/ [id number] 05:10:00 Test Item Value Reference Range Comments COLOR (BEAKER) (test rkpl=366) Light Yellow CLARITY (BEAKER) (test auby=336) Clear SPECIFIC GRAVITY UA (BEAKER) (test ajyw=568) 1.007 1.001-1.035 PH UA (BEAKER) (test rynz=249) 6.5 5.0-8.0 PROTEIN UA (BEAKER) (test agob=467) Negative Negative GLUCOSE UA (BEAKER) (test aowt=824) Negative Negative KETONES UA (BEAKER) (test miis=786) Negative Negative BILIRUBIN UA (BEAKER) (test chjf=977) Negative Negative BLOOD UA (BEAKER) (test urpx=429) Negative Negative NITRITE UA (BEAKER) (test cfut=375) Negative Negative LEUKOCYTE ESTERASE UA (BEAKER) (test ijoe=858) Small Negative UROBILINOGEN UA (BEAKER) (test aznw=209) 0.2 mg/dL 0.2-1.0 RBC UA (BEAKER) (test jyzm=011) 0 /HPF WBC UA (BEAKER) (test xtcj=075) 5 /HPF SQUAMOUS EPITHELIAL (BEAKER) (test wtdy=740) 2 /HPF SOURCE(BEAKER) (test gpxw=4654) Urine, Voided TROPONIN [id number] 05:02:00 Test Item Value Reference Range Comments TROPONIN I (BEAKER) (test saxq=527) < ng/mL 0.00-0.03 Troponin I (TnI) levels must be interpreted [...] failure, acidosis, acute neurological disease, and persistent tachyarrhythmia.BASIC METABOLIC [id number] 04:51:00 Test Item Value Reference Range Comments SODIUM (BEAKER) (test 138 meq/L 136-145 qxiw=455) POTASSIUM (BEAKER) (test 3.8 meq/L 3.5-5.1 enaw=650) CHLORIDE (BEAKER) (test 107 meq/L 98-107 emxa=081) CO2 (BEAKER) (test 23 meq/L 22-29 hhzk=685) BLOOD UREA NITROGEN 8 mg/dL 7-21 (BEAKER) (test cqau=891) CREATININE (BEAKER) (test 0.74 mg/dL 0.57-1.25 yiyi=100) GLUCOSE RANDOM (BEAKER) 137 mg/dL 70-105 (test xqda=731) CALCIUM (BEAKER) (test 8.5 mg/dL 8.4-10.2 nhic=656) EGFR (BEAKER) (test mL/min/1.73 sq m INSUFFICIENT CLINICAL DATA kopd=3645) TO CALCULATE ESTIMATED GFR. [id number] 04:46:00 Test Item Value Reference Range Comments D-DIMER QUANTITATIVE (BEAKER) (test cjra=621) < MG/L FEU <0.50 Intended Use: The D-Dimer Assay can be used to aid in the diagnosis of Deep Vein Thrombosis (DVT) and Pulmonary Embolism Disease (PED).In patients with low pre-test probability, various studies concerning STA Liatest D-dimer test have reported that with a cutoff value of 0.50 MG/L FEU, the Negative Predictive Value (NPV) regarding the exclusion of thrombosis is within 95-100% range.CBC W/ PLT COUNT & AUTO [id number] 04:38:00 Test Item Value Reference Range Comments WHITE BLOOD CELL COUNT (BEAKER) (test oxwl=381) 8.7 K/ L 3.5-10.5 RED BLOOD CELL COUNT (BEAKER) (test xvby=354) 3.98 M/ L 3.93-5.22 HEMOGLOBIN (BEAKER) (test ksey=207) 11.7 GM/DL 11.2-15.7 HEMATOCRIT (BEAKER) (test nsmk=989) 36.3 % 34.1-44.9 MEAN CORPUSCULAR VOLUME (BEAKER) (test lfjb=213) 91.2 fL 79.4-94.8 MEAN CORPUSCULAR HEMOGLOBIN (BEAKER) (test 29.4 pg 25.6-32.2 gyye=733) MEAN CORPUSCULAR HEMOGLOBIN CONC (BEAKER) (test 32.2 GM/DL 32.2-35.5 iuml=081) RED CELL DISTRIBUTION WIDTH (BEAKER) (test 13.5 % 11.7-14.4 ppmw=973) PLATELET COUNT (BEAKER) (test oodm=358) 251 K/CU MM 150-450 MEAN PLATELET VOLUME (BEAKER) (test huce=542) 8.7 fL 9.4-12.3 NUCLEATED RED BLOOD CELLS (BEAKER) (test 0 /100 WBC 0-0 iytz=412) NEUTROPHILS RELATIVE PERCENT (BEAKER) (test 75 % dyln=138) LYMPHOCYTES RELATIVE PERCENT (BEAKER) (test 14 % ukye=684) MONOCYTES RELATIVE PERCENT (BEAKER) (test 8 % ogud=975) EOSINOPHILS RELATIVE PERCENT (BEAKER) (test 2 % ssbk=266) BASOPHILS RELATIVE PERCENT (BEAKER) (test 1 % yuzg=788) NEUTROPHILS ABSOLUTE COUNT (BEAKER) (test 6.57 K/ L 1.56-6.13 ijvp=140) LYMPHOCYTES ABSOLUTE COUNT (BEAKER) (test 1.25 K/ L 1.18-3.74 wijp=795) MONOCYTES ABSOLUTE COUNT (BEAKER) (test 0.66 K/ L 0.24-0.36 yzds=017) EOSINOPHILS ABSOLUTE COUNT (BEAKER) (test 0.15 K/ L 0.04-0.36 mjfa=592) BASOPHILS ABSOLUTE COUNT (BEAKER) (test 0.06 K/ L 0.01-0.08 olcs=223) IMMATURE GRANULOCYTES-RELATIVE PERCENT (BEAKER) 1 % 0-1 (test thks=1843) MR, BRAIN, [id number] 04:12:00FINAL REPORT MR, BRAIN , WITH \T\ WITHOUT CONTRAST INDICATION: Seizures new orprogressive TECHNIQUE: Multiplanar, multisequence MR imaging of the brain was obtained before and after uneventful administration of gadolinium contrast. COMPARISON: Correlation to noncontrast brain CTMay 2017 FINDINGS:Mild cerebral atrophy is present. There are rare [...] lobes bilaterally. Appearance may be artifactual or dueto infiltrate. Correlation with EEG recommended. No space-occupying lesion. Gross symmetry of the [place] formations. Signed: JR Perez Robert MDReport Verified Date/Time: 01/01/2018 04:12:21Reading Location: [address] Body Reading Room Electronically signed by: AMBROSE PEREZ on 04:12 AMRAD, CHEST, 1 VIEW, NON [id number] 15:26:00Reason for exam:- >chest painFINAL REPORT EXAM: Frontal chest radiograph HISTORY PROVIDED: Chest pain COMPARISON: None available IMPRESSION: No focal consolidation, pneumothorax, or significant pleural fluid is identified. The cardiomediastinal silhouette is within normal limits. No acute osseous abnormality. Signed: Shiela Hickman Verified Date/Time: 15:26:03 Reading Location: [facility] Mammo Reading Room CT, BRAIN, WITHOUT [id number] 15:17:00Reason for exam:->headacheWhat is the patient's sedation requirement?->No SedationFINAL REPORT CT Head without contrast CLINICAL HISTORY: Syncope/faintingheadache TECHNIQUE: Contiguous axial images through the head [...] There is generalized parenchymal volume loss without hydrocephalus , midline shift, or apparent mass effect. There are no extra-axial fluid collections. The skull is intact. The visualized paranasal sinuses are well- aerated. IMPRESSION: No CT evidence of acute infarct, hemorrhage,or hydrocephalus. Signed: Tyesha Terry MDReport Verified Date/Time: 12/31/2017 15 :17:03 Reading Location: [facility] [id number] Consult Reading Room B-TYPE NATRIURETIC FACTOR (BNP)2017-12-31 14:51:00 Test Item Value Reference Range Comments B-TYPE NATRIURETIC PEPTIDE (BEAKER) (test ajwx=926) 17 pg/mL 0-100 TROPONIN [id number] 14:51:00 Test Item Value Reference Range Comments TROPONIN I (BEAKER) (test bapm=227) 0.01 ng/mL 0.00-0.03 Troponin I (TnI) levels must be interpreted [...] failure, acidosis, acute neurological disease, and persistent tachyarrhythmia.BASIC METABOLIC [id number] 14:47:00 Test Item Value Reference Range Comments SODIUM (BEAKER) (test 135 meq/L 136-145 zyuj=066) POTASSIUM (BEAKER) (test 3.8 meq/L 3.5-5.1 hdwl=039) CHLORIDE (BEAKER) (test 104 meq/L 98-107 sskg=629) CO2 (BEAKER) (test 22 meq/L 22-29 ulbb=215) BLOOD UREA NITROGEN 9 mg/dL 7-21 (BEAKER) (test vbqk=889) CREATININE (BEAKER) (test 0.77 mg/dL 0.57-1.25 jdml=510) GLUCOSE RANDOM (BEAKER) 106 mg/dL 70-105 (test hflr=645) CALCIUM (BEAKER) (test 9.0 mg/dL 8.4-10.2 sjot=669) EGFR (BEAKER) (test mL/min/1.73 sq m INSUFFICIENT CLINICAL DATA hgbi=5134) TO CALCULATE ESTIMATED GFR. [id number] 14:43:00 Test Item Value Reference Range Comments MAGNESIUM (BEAKER) (test oeis=698) 2.2 mg/dL 1.6-2.6 CBC W/PLT COUNT & AUTO [id number] 14:31:00 Test Item Value Reference Range Comments WHITE BLOOD CELL COUNT (BEAKER) (test vxkx=038) 7.2 K/ L 3.5-10.5 RED BLOOD CELL COUNT (BEAKER) (test ukgn=948) 3.97 M/ L 3.93-5.22 HEMOGLOBIN (BEAKER) (test hwmy=493) 12.1 GM/DL 11.2-15.7 HEMATOCRIT (BEAKER) (test zsfe=433) 36.4 % 34.1-44.9 MEAN CORPUSCULAR VOLUME (BEAKER) (test cuwc=497) 91.7 fL 79.4-94.8 MEAN CORPUSCULAR HEMOGLOBIN (BEAKER) (test 30.5 pg 25.6-32.2 fhui=399) MEAN CORPUSCULAR HEMOGLOBIN CONC (BEAKER) (test 33.2 GM/DL 32.2-35.5 owat=676) RED CELL DISTRIBUTION WIDTH (BEAKER) (test 13.4 % 11.7-14.4 aztd=393) PLATELET COUNT (BEAKER) (test voyb=864) 268 K/CU MM 150-450 MEAN PLATELET VOLUME (BEAKER) (test rduk=236) 8.9 fL 9.4-12.3 NUCLEATED RED BLOOD CELLS (BEAKER) (test 0 /100 WBC 0-0 gypu=247) NEUTROPHILS RELATIVE PERCENT (BEAKER) (test 70 % lpih=749) LYMPHOCYTES RELATIVE PERCENT (BEAKER) (test 18 % vyty=868) MONOCYTES RELATIVE PERCENT (BEAKER) (test 8 % arlz=298) EOSINOPHILS RELATIVE PERCENT (BEAKER) (test 3 % mslw=797) BASOPHILS RELATIVE PERCENT (BEAKER) (test 1 % rzdj=695) NEUTROPHILS ABSOLUTE COUNT (BEAKER) (test 5.04 K/ L 1.56-6.13 hgvk=505) LYMPHOCYTES ABSOLUTE COUNT (BEAKER) (test 1.25 K/ L 1.18-3.74 exji=896) MONOCYTES ABSOLUTE COUNT (BEAKER) (test 0.56 K/ L 0.24-0.36 hjlb=799) EOSINOPHILS ABSOLUTE COUNT (BEAKER) (test 0.20 K/ L 0.04-0.36 mfyi=819) BASOPHILS ABSOLUTE COUNT (BEAKER) (test 0.07 K/ L 0.01-0.08 iutv=855) IMMATURE GRANULOCYTES-RELATIVE PERCENT (BEAKER) 1 % 0-1 (test ucyi=3821)
[2018-12-27] MEDS ORDERED: BUPIVACAINE 0.25% PF 10 ML VIAL ONE (08:22)
[2018-12-27] MEDS ORDERED: TETRACAINE HCL 0.5% 4ML OPTH ONE (08:22)
[2018-12-27] MEDS ORDERED: LIDOCAINE 2% MPF 5 ML VIAL ONE (08:22)
[2018-12-27] MEDS: CYCLOPENTOLATE 1% OPTH 2 ML ONE ×3 (08:42→08:53)
[2018-12-27] MEDS: PHENYLEPHRINE 10% OPTH 5ML ONE ×3 (08:42→08:53)
[2018-12-27] MEDS ORDERED: NS 0.9% VIAL 10 ML ONE (08:43)
[2018-12-27] MEDS ORDERED: NA CHLORIDE 0.9% 500 ML ONE (08:47)
[2018-12-27] MEDS: BALANCED SALT IRRIG PLAIN 500 ML BTL IRR ONE ×2 (09:49→10:31)
[2018-12-27] MEDS: MOXIFLOXACIN HCL 10 DROPS/ML **OR USE OPTH ONE ×2 (09:50→11:03)
[2018-12-27] MEDS: EPINEPHRINE/PF 1 MG/ML AMP ONE ×2 (09:50→10:32)
[2018-12-27] MEDS: DUOVISC 1 KIT OPTH ONE ×2 (09:50→10:34)
[2018-12-27] MEDS ORDERED: LIDOCAINE 1% MPF 5 ML VIAL ONE (10:17)
[2018-12-27] MEDS ORDERED: PROPOFOL 200 MG/20 ML VIAL IV ONE (10:17)
--- NOTE | 2018-12-27 11:10 | P.BOP ---
Preoperative diagnosis: Nuclear sclerotic cataract and regular astigmatism OS Postoperative diagnosis: Same Primary procedure: Phacoemulsification with Toric IOL OS Estimated blood loss: None Anesthesia: Local (Subtenon's infusion with anesthesia for cataract surgery) Complications: None Implants: [id number] +19.0 @ 142 Transferred to: Other (Day surgery) Condition: Good
--- NOTE | 2018-12-27 22:03 | OP ---
Date of Procedure: 12/27/2018 Surgeon: Karon Khan MD Anesthesiologist: 1. Boni Pro CRNA. 2. [place] M.D. Preoperative Diagnoses: Nuclear sclerotic cataract, left eye and regular astigmatism, left eye. Operation Performed: Phacoemulsification with toric intraocular lens implant, left eye. Anesthesia: Per cataract surgery. Complications: None. Description Of Procedure: In day surgery, the patient was prepped with Betadine and draped. A conju nctival incision was made in the inferior nasal quadrant with Treasure scissors. A sub-Tenon block c onsisting of a 1:1 mixture of 2% Xylocaine and 0.25% bupivacaine was placed through the conjunctival incision with a blunt cannula. A Honan balloon was placed over the eye and the patient was transferr ed to the operating room. In the operating room the patient was prepped and draped in the usual sterile fashion for ophthalmic surgery. A lid speculum was placed in the left eye. Two paracentesis sites were made superiorly and inferiorly in the limbal cornea. Viscoat was placed in the anterior chamber and a crescent blade wa s used to make a corneal groove and tunnel, and a keratome was used to enter the anterior chamber. P rovisc was placed in the anterior chamber and a 360 degree capsulotomy was performed with a cystitome . The lens was hydrodissected with BSS and rotated freely. The lens was removed with a stop and cho p technique. 25.65 phaco CDE was used to remove the lens. Residual cortex was removed with the irri gation and aspiration. Provisc was placed in the capsular bag. A KEP465 +19.0 at 142 degrees lens w as placed in the capsular bag without complications. Irrigation and aspiration were used to remove r esidual viscoelastic. The paracentesis sites were hydrated with BSS. The wound and paracentesis sit es were inspected and found to be watertight. Vigamox 0.07 cc was placed intracamerally at the end o f the procedure. The eye was irrigated with balanced salt solution. The eye was patched with a soft cotton patch and Cunningham metal shield. The patient was returned to day surgery in good condition. Discharge Instructions: Ms. Mccoy is discharged to home in good condition and is to follow up with Alberto Khan in the morning. DALILA/MODL Voice ID: [id number] Report ID: [id number]
== END 2018-12-27 12:00 | disposition home or self-care (01) ==
LOC: OR 07:43
PROVIDERS: ATTEND Ophthalmology Retina Specialist
PROC: 08RK3JZ Replacement of Left Lens with Synthetic Substitute, Percutaneous Approach (ICD-10-PCS; principal; 2018-12-27 09:40)
DX: H25.12 Age-related nuclear cataract, left eye (principal); H52.222 Regular astigmatism, left eye; E07.9 Disorder of thyroid, unspecified; F32.9 Major depressive disorder, single episode, unspecified; Z88.6 Allergy status to analgesic agent; Z88.8 Allergy status to other drugs, medicaments and biological substances; Z83.511 Family history of glaucoma; Z80.9 Family history of malignant neoplasm, unspecified
CPT/HCPCS: 66984; J2704; J0171; V2630; V2787